=== PATIENT | female | born 1950 | race Caucasian/White ===

== ENCOUNTER 2024-01-26 08:38 | Inpatient (IN) ==
[2024-01-26] MEDS: Lactated Ringers 1000 ml BAG 1,000 ML IV ONE (09:37)
[2024-01-26] MEDS: Ondansetron 4 mg VIAL 2 MG/ML 2 ml VIAL IV ONE (09:37)
[2024-01-26 10:31] LABS: ABS Lymphocytes 0.4 10^3/uL (1.0-4.8); ABS Neutrophils 19.1 10^3/uL (1.5-7.6); ABS Nucleated RBC 0.01 10^3/ul; Hematocrit 48.6 % (35-45); Hemoglobin 15.9 g/dL (11.5-14.3); Lymphocyte % 2.1 %; Mean Corpuscular Hgb Conc 32.8 g/dL (31-36); Mean Corpuscular Volume 94.6 fL (80-97); Mean Platelet Volume 10.4 fL (7.5-11.2); Platelet Count 227 10^3/uL (150-450); Red Blood Count 5.14 10^6/uL (3.63-4.92); Red Cell Distribution Width 14.5 % (12-17); White Blood Count 20.5 10^3/uL (3.8-11.8)
[2024-01-26 11:18] LABS: ALT 40 U/L (7-52); Albumin 4.2 g/dL (3.2-5.2); Albumin/Globulin Ratio 1.2 (1-3); Alkaline Phosphatase 90 U/L (35-149); Anion Gap 10 mmol/L (2-16); Blood Urea Nitrogen 21 mg/dL (6-24); CO2 Carbon Dioxide 22 mmol/L (22-32); Calcium 9.6 mg/dL (8.6-10.3); Chloride 102 mmol/L (101-111); Creatinine, Serum 1.25 mg/dL (0.51-0.95); Globulin 3.4 g/dL (2-4); Glucose 152 mg/dL (70-100); Sodium 134 mmol/L (135-145); Total Bilirubin 0.7 mg/dL (0.2-1.0); Total Protein 7.6 g/dL (6.4-8.9); eGFR CKD-EPI 45.5 (>60)
[2024-01-26] MEDS: Iohexol 300 (CONTRAST) 10 ML SDV IV ONE (11:32)
[2024-01-26] MEDS: Iodixanol (CONTRAST) 320 MG/ML 100 ML SDV IV ONE (11:33)
[2024-01-26 12:30] LABS: Erythrocyte Sed Rate 10 mm/Hr (0-29)
[2024-01-26] MEDS: Clindamycin 600 MG/D5W BAG 600 MG/50 ML BAG IV ONE (13:58)
[2024-01-26] MEDS: Acetaminophen IV 1 GM/100ML 1,000 MG/100 ML BAG IV ONE (14:36)
[2024-01-26] MEDS: Dexamethasone IV 4 MG/ML VIAL 1 ml VIAL IV SLOW PU ONE ×2 (14:36→15:01)
[2024-01-26] MEDS: cefTRIAXone 1 gm/50 mL D5W 1 GM/50 ML BAG IV ONE (15:01)
[2024-01-26] MEDS: cefTRIAXone 1 gm/50 mL D5W 1 GM/50 ML BAG IV SCH (15:02)
[2024-01-26] MEDS: Lactated Ringers 1000 ml BAG 1,000 ML IV SCH (16:51)
[2024-01-26] MEDS ORDERED: Ondansetron 4 mg VIAL 2 MG/ML 2 ml VIAL IV PRN (16:54)
[2024-01-26] MEDS: Clindamycin 900 MG/D5W BAG 900 MG/50 ML BAG IVPB SCH (20:59)
[2024-01-26 21:27] LABS: Albumin 3.7 g/dL (3.2-5.2); Albumin/Globulin Ratio 1.3 (1-3); Calcium 9.4 mg/dL (8.6-10.3); Creatinine, Serum 1.19 mg/dL (0.51-0.95); Globulin 2.9 g/dL (2-4); Potassium 4.3 mmol/L (3.5-5.0); Total Bilirubin 0.9 mg/dL (0.2-1.0); Total Protein 6.6 g/dL (6.4-8.9); eGFR CKD-EPI 48.3 (>60)
[2024-01-26] MEDS ORDERED: Clindamycin 900 MG/D5W BAG 900 MG/50 ML BAG IVPB SCH (22:00)
[2024-01-27] MEDS ORDERED: Enoxaparin 40 MG/0.4 ML SYR SUBCUT SCH (01:00)
[2024-01-27 04:17] LABS: Hematocrit 40.4 % (35-45); Hemoglobin 13.7 g/dL (11.5-14.3); Mean Corpuscular Hemoglobin 31.7 pg (27-33); Mean Corpuscular Volume 93.4 fL (80-97); Mean Platelet Volume 9.7 fL (7.5-11.2); Platelet Count 188 10^3/uL (150-450); Red Blood Count 4.32 10^6/uL (3.63-4.92); Red Cell Distribution Width 14.4 % (12-17); White Blood Count 23.8 10^3/uL (3.8-11.8)
[2024-01-27 04:39] LABS: ABS Basophils 0.1 10^3/uL (0.0-0.1); ABS Monocytes 0.8 10^3/uL (0.0-0.9); ABS Neutrophils 21.9 10^3/uL (1.5-7.6); ABS Nucleated RBC 0.01 10^3/ul
[2024-01-27 05:18] LABS: Calcium 9.3 mg/dL (8.6-10.3); Creatinine, Serum 1.12 mg/dL (0.51-0.95); Magnesium 1.5 mg/dL (1.9-2.7); Potassium 4.3 mmol/L (3.5-5.0); eGFR CKD-EPI 51.9 (>60)
[2024-01-27] MEDS: Magnesium Sulf 4 GM/100 ML IV 4,000 MG/100 ML BAG IVPB ONE (07:13)
[2024-01-27] MEDS: Phenylephrine 0.5% NASAL BTL BOTH NARES PRN (10:12)
[2024-01-27] MEDS ORDERED: Lidocaine 4% TOPICAL 50 ML TOP.SOLN ONE (10:39)
[2024-01-27] MEDS ORDERED: Lidocaine 1% w EPI 1:100,000 MDV 20 ML VIAL ONE (11:46)
[2024-01-27] MEDS ORDERED: Midazolam 2 mg/2 ml VIAL 1 mg/ml 2 ml VIAL (2 mg) ONE (12:14)
[2024-01-27] MEDS: Morphine 2 MG/ML SYRINGE IV PRN (13:57)
[2024-01-27] MEDS ORDERED: Dexamethasone IV 4 MG/ML VIAL 1 ml VIAL IV SLOW PU ONE (13:59)
[2024-01-27] MEDS: Acetaminophen IV 1 GM/100ML 1,000 MG/100 ML BAG IV PRN (14:21)
[2024-01-27] MEDS: cefTRIAXone 1 gm/50 mL D5W 1 GM/50 ML BAG IV SCH (14:45)
[2024-01-27] MEDS: Dexmedetomidine 1,000 MCG in NS 0.9% 250 ml 240 ML IV SCH (14:53)
[2024-01-27] MEDS: Midazolam 2 mg/2 ml VIAL 1 mg/ml 2 ml VIAL (2 mg) IV SLOW PU ONE (14:53)
[2024-01-27] MEDS: Dexamethasone IV 10 MG in NS 0.9% 50 ML 50 ML IVPB ONE (17:16)
[2024-01-27] MEDS: Dexamethasone IV 4 MG/ML VIAL 1 ml VIAL IV SLOW PU ONE (17:20)
[2024-01-27] MEDS: Enoxaparin 40 MG/0.4 ML SYR SUBCUT SCH (19:56)
[2024-01-28] MEDS: Metoprolol Tartrate 5 mg VIAL 5 ml VIAL (1 mg/ml) IV PRN (04:15)
[2024-01-28 04:37] LABS: ABS Basophils 0.1 10^3/uL (0.0-0.1); ABS Monocytes 0.5 10^3/uL (0.0-0.9); ABS Neutrophils 18.7 10^3/uL (1.5-7.6); Hematocrit 43.1 % (35-45); Hemoglobin 14.5 g/dL (11.5-14.3); Lymphocyte % 4.9 %; Mean Corpuscular Hemoglobin 31.6 pg (27-33); Mean Corpuscular Hgb Conc 33.7 g/dL (31-36); Mean Corpuscular Volume 93.7 fL (80-97); Mean Platelet Volume 10.6 fL (7.5-11.2); Platelet Count 168 10^3/uL (150-450); Red Cell Distribution Width 14.7 % (12-17); White Blood Count 20.3 10^3/uL (3.8-11.8)
[2024-01-28 04:55] LABS: Calcium 9.7 mg/dL (8.6-10.3); Creatinine, Serum 1.06 mg/dL (0.51-0.95); Magnesium 2.5 mg/dL (1.9-2.7); eGFR CKD-EPI 55.5 (>60)
[2024-01-28] MEDS ORDERED: Dexamethasone IV 10 MG in NS 0.9% 50 ML 50 ML IVPB ONE (16:44)
[2024-01-28] MEDS ORDERED: Dexamethasone IV 4 MG/ML VIAL 1 ml VIAL IV SLOW PU ONE (17:00)
[2024-01-29 04:11] LABS: Hematocrit 41.8 % (35-45); Hemoglobin 13.9 g/dL (11.5-14.3); Mean Corpuscular Hemoglobin 31.2 pg (27-33); Mean Corpuscular Hgb Conc 33.3 g/dL (31-36); Mean Corpuscular Volume 93.8 fL (80-97); Mean Platelet Volume 10.1 fL (7.5-11.2); Platelet Count 206 10^3/uL (150-450); Red Blood Count 4.45 10^6/uL (3.63-4.92); Red Cell Distribution Width 14.6 % (12-17); White Blood Count 22.9 10^3/uL (3.8-11.8)
[2024-01-29 04:24] LABS: ABS Basophils 0.1 10^3/uL (0.0-0.1); ABS Lymphocytes 1.1 10^3/uL (1.0-4.8); ABS Monocytes 0.8 10^3/uL (0.0-0.9); ABS Nucleated RBC 0.02 10^3/ul; Lymphocyte % 4.7 %; Nucleated Red Blood Cells % 0.1 %/100WBC (0.0-0.8)
[2024-01-29 04:48] LABS: Calcium 9.3 mg/dL (8.6-10.3); Creatinine, Serum 1.02 mg/dL (0.51-0.95); Magnesium 2.4 mg/dL (1.9-2.7); Potassium 4.7 mmol/L (3.5-5.0); eGFR CKD-EPI 58.1 (>60)
[2024-01-29] MEDS ORDERED: Acetaminophen IV 1 GM/100ML 1,000 MG/100 ML BAG IV PRN (10:10)
[2024-01-30 05:22] LABS: Hematocrit 44.4 % (35-45); Hemoglobin 14.7 g/dL (11.5-14.3); Mean Corpuscular Hemoglobin 31.1 pg (27-33); Mean Corpuscular Volume 94.4 fL (80-97); Mean Platelet Volume 10.3 fL (7.5-11.2); Platelet Count 231 10^3/uL (150-450); Red Blood Count 4.71 10^6/uL (3.63-4.92); Red Cell Distribution Width 14.7 % (12-17); White Blood Count 14.2 10^3/uL (3.8-11.8)
[2024-01-30 05:40] LABS: Calcium 9.3 mg/dL (8.6-10.3); Creatinine, Serum 1.02 mg/dL (0.51-0.95); Potassium 4.3 mmol/L (3.5-5.0); eGFR CKD-EPI 58.1 (>60)
[2024-01-30 05:56] LABS: ABS Lymphocytes 2.2 10^3/uL (1.0-4.8); ABS Neutrophils 10.9 10^3/uL (1.5-7.6); ABS Nucleated RBC 0.02 10^3/ul; Eosinophil % 0.1 %; Lymphocyte % 15.4 %; Nucleated Red Blood Cells % 0.1 %/100WBC (0.0-0.8)
[2024-01-30] MEDS: Metoprolol Tartrate 5 mg VIAL 5 ml VIAL (1 mg/ml) IV SCH (09:00)
[2024-01-30] MEDS: NS 0.9% 1000 ml BAG 1,000 ML IV SCH (15:47)
[2024-01-31 07:41] LABS: ABS Eosinophils 0.1 10^3/uL (0.0-0.5); ABS Lymphocytes 2.3 10^3/uL (1.0-4.8); ABS Monocytes 1.1 10^3/uL (0.0-0.9); ABS Neutrophils 7.8 10^3/uL (1.5-7.6); ABS Nucleated RBC 0.01 10^3/ul; Eosinophil % 0.8 %; Hematocrit 42.8 % (35-45); Hemoglobin 14.5 g/dL (11.5-14.3); Lymphocyte % 20.7 %; Mean Corpuscular Hemoglobin 31.5 pg (27-33); Mean Corpuscular Hgb Conc 33.8 g/dL (31-36); Mean Corpuscular Volume 93.2 fL (80-97); Mean Platelet Volume 9.8 fL (7.5-11.2); Nucleated Red Blood Cells % 0.1 %/100WBC (0.0-0.8); Platelet Count 246 10^3/uL (150-450); Red Cell Distribution Width 14.3 % (12-17); White Blood Count 11.3 10^3/uL (3.8-11.8)
[2024-01-31 08:12] LABS: Calcium 8.7 mg/dL (8.6-10.3); Creatinine, Serum 0.85 mg/dL (0.51-0.95); Magnesium 2.1 mg/dL (1.9-2.7); Potassium 4.3 mmol/L (3.5-5.0); eGFR CKD-EPI 72.3 (>60)
[2024-02-01] MEDS ORDERED: Lidocaine 4% TOPICAL 50 ML TOP.SOLN ONE (10:59)
[2024-02-01] MEDS ORDERED: Phenylephrine 0.25% NASAL ONE (10:59)
[2024-02-02 10:19] VITALS: BP 153/105
== END 2024-02-02 11:40 | disposition home or self-care (01) | DRG 12 ==
LOC: ED 08:38 → EDHOLD 14:18 → SUATTDRO 14:18 → ICU 15:30 → SSU 01-29 17:17
PROVIDERS: ADMIT Student in an Organized Health Care Education/Training Program; ATTEND Internal Medicine

== ENCOUNTER 2024-02-10 13:14 | Observation (INO) ==
[2024-02-10 14:26] LABS: ABS Basophils 0.2 10^3/uL (0.0-0.1); ABS Eosinophils 0.1 10^3/uL (0.0-0.5); ABS Lymphocytes 2.1 10^3/uL (1.0-4.8); ABS Monocytes 1.3 10^3/uL (0.0-0.9); ABS Neutrophils 8.9 10^3/uL (1.5-7.6); ABS Nucleated RBC 0.01 10^3/ul; Eosinophil % 0.9 %; Hematocrit 44.2 % (35-45); Hemoglobin 14.8 g/dL (11.5-14.3); Lymphocyte % 16.8 %; Mean Corpuscular Hemoglobin 31.3 pg (27-33); Mean Corpuscular Hgb Conc 33.3 g/dL (31-36); Mean Corpuscular Volume 93.9 fL (80-97); Mean Platelet Volume 9.9 fL (7.5-11.2); Platelet Count 272 10^3/uL (150-450); Red Blood Count 4.71 10^6/uL (3.63-4.92); Red Cell Distribution Width 14.4 % (12-17); White Blood Count 12.5 10^3/uL (3.8-11.8)
[2024-02-10] MEDS: Iodixanol (CONTRAST) 320 MG/ML 100 ML SDV IV ONE (14:55)
[2024-02-10 14:56] LABS: Albumin 3.5 g/dL (3.2-5.2); Albumin/Globulin Ratio 1.1 (1-3); C Reactive Protein 21.64 mg/L (<8.01); Calcium 9.5 mg/dL (8.6-10.3); Creatinine, Serum 0.88 mg/dL (0.51-0.95); Globulin 3.3 g/dL (2-4); Potassium 4.4 mmol/L (3.5-5.0); Total Bilirubin 0.6 mg/dL (0.2-1.0); Total Protein 6.8 g/dL (6.4-8.9); eGFR CKD-EPI 69.3 (>60)
[2024-02-10] MEDS: Dexamethasone IV 4 MG/ML VIAL 1 ml VIAL IV SLOW PU ONE (15:00)
[2024-02-10] MEDS: cefTRIAXone 1 gm/50 mL D5W 1 GM/50 ML BAG IV ONE ×2 (15:01→19:21)
[2024-02-10] MEDS: metroNIDAZOLE IV 500 MG/100ML 500 MG/100 ML BAG IVPB ONE (15:02)
[2024-02-10] MEDS: Lactated Ringers 1000 ml BAG 1,000 ML IV ONE (16:38)
[2024-02-10] MEDS: Dexamethasone IV 4 MG/ML VIAL 1 ml VIAL IV SLOW PU SCH (19:21)
[2024-02-10] MEDS ORDERED: Acetaminophen IV 1 GM/100ML 1,000 MG/100 ML BAG IV PRN (20:21)
[2024-02-10] MEDS ORDERED: Metoprolol Tartrate 5 mg VIAL 5 ml VIAL (1 mg/ml) IV PRN (20:24)
[2024-02-10] MEDS ORDERED: Ondansetron 4 mg VIAL 2 MG/ML 2 ml VIAL IV PRN (20:31)
[2024-02-10] MEDS ORDERED: Dexamethasone IV 4 MG/ML VIAL 1 ml VIAL IV SLOW PU SCH (22:00)
[2024-02-11] MEDS ORDERED: metroNIDAZOLE IV 500 MG/100ML 500 MG/100 ML BAG IVPB SCH
[2024-02-11] MEDS: metroNIDAZOLE IV 500 MG/100ML 500 MG/100 ML BAG IVPB SCH (00:11)
[2024-02-11 03:56] LABS: ABS Lymphocytes 1.2 10^3/uL (1.0-4.8); ABS Monocytes 0.1 10^3/uL (0.0-0.9); ABS Neutrophils 8.2 10^3/uL (1.5-7.6); Hematocrit 41.4 % (35-45); Lymphocyte % 12.1 %; Mean Corpuscular Hemoglobin 31.7 pg (27-33); Mean Corpuscular Hgb Conc 33.8 g/dL (31-36); Mean Corpuscular Volume 93.8 fL (80-97); Mean Platelet Volume 10.1 fL (7.5-11.2); Platelet Count 257 10^3/uL (150-450); Red Blood Count 4.42 10^6/uL (3.63-4.92); Red Cell Distribution Width 14.8 % (12-17); White Blood Count 9.5 10^3/uL (3.8-11.8)
[2024-02-11 04:44] LABS: Magnesium 1.8 mg/dL (1.9-2.7)
[2024-02-11 04:45] LABS: Calcium 9.4 mg/dL (8.6-10.3); Creatinine, Serum 0.8 mg/dL (0.51-0.95); Potassium 4.4 mmol/L (3.5-5.0); eGFR CKD-EPI 77.8 (>60)
[2024-02-11] MEDS: Magnesium Sulfate IV 1GM/100ML 1 GM/100 ML BAG IV ONE (07:59)
[2024-02-11 10:06] LABS: Albumin 3.4 g/dL (3.2-5.2); Albumin/Globulin Ratio 1.1 (1-3); Direct Bilirubin 0.1 mg/dL (0.03-0.18); Indirect Bilirubin 0.4 mg/dL (0.3-1.0); Total Bilirubin 0.5 mg/dL (0.2-1.0); Total Protein 6.4 g/dL (6.4-8.9)
[2024-02-11] MEDS: Lidocaine 1% MPF 5 ML VIAL INJ ONE (12:30)
[2024-02-11] MEDS: cefTRIAXone 2 gm/50 mL D5W 2 GM/50 ML BAG IV SCH (18:02)
[2024-02-12] MEDS: cefTRIAXone 2 gm/50 mL D5W 2 GM/50 ML BAG IV SCH (11:31)
[2024-02-12 13:10] VITALS: BP 119/78
== END 2024-02-12 13:40 | disposition home or self-care (01) ==
LOC: ED 13:14 → EDHOLD 18:35 → INTOOBSV 18:35 → ICU 20:23
PROVIDERS: ADMIT Internal Medicine Critical Care Medicine; ATTEND Internal Medicine Critical Care Medicine